=== PATIENT | female | born 1940 | race American Indian/Alaskan Native ===

== ENCOUNTER 2018-04-11 09:03 | Emergency (ER) | payer SELFPAY ==
[2018-04-11 09:14] VITALS: BP 136/69
[2018-04-11] MEDS ORDERED: ULTRAM PO ONE (12:07)
--- NOTE | 2018-04-11 12:09 | Emergency Department Report ---
ED Back Pain/Injury HPI - General Chief Complaint: Fall Stated Complaint: SEVERE LOWER BACK PAIN/FALL/TROBLE BREATHING Time Seen by Provider: 04/11/18 11:54 Source: patient, family Limitations: Language Barrier - History of Present Illness Initial Comments: This is a 77-year-old female that presents with pain to lower back from a fall yesterday morning. She has a history of diabetes type II and hypertension. Patient son is at bedside reports, mother was washing her feet in the sink and slipped and fell from a standing position. She hit her back on the floor when she hit the ground. The patient is now complaining of low back pain that is nonradiating. Pain is bilateral and worse with movement. She is currently having pain it is 10 out of 10 on pain scale that is intermittent. Patient currently taken Tylenol extra strength is an icy hot pads with no improvement of symptoms. Denies loss of consciousness, swelling, erythema, numbness or tingling, chest pain, and palpitations. MD Complaint: back pain (bilateral low back pain), fall -: days(s) (yesterday) Similar Symptoms Previously: No Place: home Radiation: none Severity: severe Severity scale (0 -10): 10 Quality: aching Consistency: intermittent Improves With: none Worsens With: movement, walking Context: fall Associated Symptoms: denies other symptoms Treatments Prior to Arrival: heat therapy, NSAIDS - Related Data Previous Rx's Medication Instructions Recorded Last Taken Type Cyclobenzaprine HCl [Flexeril 5 MG 5 mg PO TID PRN #15 tab 04/11/18 Unknown Rx TAB] Ibuprofen [Motrin 800 MG tab] 800 mg PO Q8HR PRN #15 tablet 04/11/18 Unknown Rx traMADol [Ultram 50 MG tab] 50 mg PO Q6HR PRN #12 tablet 04/11/18 Unknown Rx Allergies Allergy/AdvReac Type Severity Reaction Status Date / Time No Known Allergies Allergy Verified 04/11/18 09:09 ED Review of Systems ROS: Stated complaint: SEVERE LOWER BACK PAIN/FALL/TROBLE BREATHING Other details as noted in HPI Constitutional: denies: chills, fever Respiratory: denies: cough, shortness of breath, wheezing Cardiovascular: denies: chest pain, palpitations Gastrointestinal: denies: abdominal pain, nausea, diarrhea Musculoskeletal: back pain (bilateral low back pain). denies: joint swelling, arthralgia Skin: denies: rash, lesions Neurological: denies: headache, weakness, paresthesias Psychiatric: denies: anxiety, depression ED Back Pain Physical Exam - Exam General: Vital signs noted. No distress. Alert and acting appropriately. Back/Abdomen: Yes Sacroiliac Tenderness (bilateral tenderness on deep palpation , full range of motion), No Abdominal Tenderness, No Perithoracic Tenderness, No Perilumbar Tenderness, No Flank Tenderness, No Straight Leg Raise Pain Neuro: Yes Normal Sensation, Yes Normal DTR's, Yes Normal Gait, No Motor Weakness ED Course Vital Signs 04/11/18 09:09 Temperature 98.2 F Pulse Rate 87 Respiratory 20 Rate Blood Pressure 136/69 O2 Sat by Pulse 96 Oximetry Ed Back Pain Tests - Tests Tests: Abnormal X Rays (Slight superior endplate depressions of L1 and possibly T12, of ) ED Medical Decision Making - Radiology Data Radiology results: report reviewed LUMBAR SPINE RADIOGRAPHS INDICATION: Low back pain, status post fall. COMPARISON: None similar at this institution. FINDINGS: AP and lateral lumbar spine radiographs demonstrate slight L1 superior endplate depression, exact age indeterminate. Similar appearance may involve T12. Otherwise normal vertebral body stature, alignment and disc heights. Mild mid to lower lumbar spine degenerative spurring. Possibly demineralized bones. Intact SI joints. Nonobstructive bowel gas pattern with constipation not excluded. Few aortic atherosclerotic calcifications. CONCLUSION: 1. Slight superior endplate depressions of L1 and possibly T12, of indeterminate age on this exam alone, though subtle fracture not entirely excluded in the given setting. Please also correlate clinically and with prior relevant imaging, if available. MRI would also help further characterize, if indicated. 2. Few other findings, as above. - Medical Decision Making This is a 77 y.o. female presents with bilateral low back pain from falling yesterday morning. Patient was examined by me. Vitals are normal and patient is stable in no acute distress. Patient given tramadol 50 mg by mouth once while in ER. Obtained x-ray of L-spine and read by radiologist. Slight superior endplate depressions of L1 and possibly T12, of indeterminate age on this exam alone, though subtle fracture not entirely excluded in the given setting. Please also correlate clinically and with prior relevant imaging, if available. MRI would also help further characterize, if indicated. Review results with patient and son. Start ibuprofen, cyclobenzaprine, and tramadol for pain. Plan discussed with patient to discharge home and treat outpatient. Patient discharged home in stable condition. Follow up with PCP and orthopedic surgery in 2-3 days. Critical care attestation.: If time is entered above; I have spent that time in minutes in the direct care of this critically ill patient, excluding procedure time. ED Disposition Clinical Impression: Strain of muscle, fascia and tendon of lower back, initial encounter Low back pain Qualifiers: Chronicity: acute Back pain laterality: bilateral Sciatica presence: without sciatica Qualified Code(s): M54.5 - Low back pain Fall Qualifiers: Encounter type: initial encounter Qualified Code(s): W19.XXXA - Unspecified fall, initial encounter Disposition: TO HOME OR SELFCARE Is pt being admited?: No Does the pt Need Aspirin: No Condition: Stable Instructions: Muscle Strain (ED), Acute Low Back Pain (ED) Additional Instructions: Rest Use ice or heat on affected area for 20 minutes and off for 2 hours. Take pain medication as needed for pain. Don't drive or operate heavy machinery while taking muscle relaxers because they may cause drowsiness. Follow up with Primary Care Provider in 2-3 days. Follow-up with orthopedic surgery in 5-7 days if symptoms have not improved. Prescriptions: Cyclobenzaprine HCl [Flexeril 5 MG TAB] 5 mg PO TID PRN #15 tab PRN Reason: Muscle Spasm Ibuprofen [Motrin 800 MG tab] 800 mg PO Q8HR PRN #15 tablet PRN Reason: Pain, Moderate (4-6) traMADol [Ultram 50 MG tab] 50 mg PO Q6HR PRN #12 tablet PRN Reason: Pain , Severe (7-10) Referrals: LADAN SOOD MD [Referring] - 3-5 Days EVA ESCOBAR MD [Staff Physician] - 3-5 Days Time of Disposition: 14:25 Print Language: TELUGU
--- NOTE | 2018-04-11 12:53 | XRay Report ---
LUMBAR SPINE RADIOGRAPHS INDICATION: Low back pain, status post fall. COMPARISON: None similar at this institution. FINDINGS: AP and lateral lumbar spine radiographs demonstrate slight L1 superior endplate depression, exact age indeterminate. Similar appearance may involve T12. Otherwise normal vertebral body stature, alignment and disc heights. Mild mid to lower lumbar spine degenerative spurring. Possibly demineralized bones. Intact SI joints. Nonobstructive bowel gas pattern with constipation not excluded. Few aortic atherosclerotic calcifications. CONCLUSION: 1. Slight superior endplate depressions of L1 and possibly T12, of indeterminate age on this exam alone, though subtle fracture not entirely excluded in the given setting. Please also correlate clinically and with prior relevant imaging, if available. MRI would also help further characterize, if indicated. 2. Few other findings, as above. Thank you for the opportunity to participate in this patient's care.
== END 2018-04-11 14:47 | disposition home or self-care (01) ==
LOC: ED 09:03
DX: S39.012A Strain of muscle, fascia and tendon of lower back, initial encounter (principal); E11.9 Type 2 diabetes mellitus without complications; I10 Essential (primary) hypertension; W01.198A Fall on same level from slipping, tripping and stumbling with subsequent striking against other object, initial encounter; Y93.89 Activity, other specified; Y99.8 Other external cause status; Y92.009 Unspecified place in unspecified non-institutional (private) residence as the place of occurrence of the external cause
CPT/HCPCS: 72100; 99283